=== PATIENT | female | born 1945 | race Caucasian/White ===

== ENCOUNTER → 2019-02-03 | Day surgery (SDC) | payer MEDICARE, OTHER ==
--- NOTE | 2019-02-01 13:13 | Diagnostic Imaging Report ---
EXAMINATION: CHEST 2 VIEWS INDICATION: Pre-operative COMPARISON: None FINDINGS: LINES/TUBES:None LUNGS:The lungs are well-inflated. No focal consolidation or pulmonary edema. PLEURA:No pleural effusion or pneumothorax. MEDIASTINUM:The cardiomediastinal silhouette appears normal in size and shape. Atherosclerotic calcifications of the thoracic aorta. BONES/SOFT TISSUES:No acute osseous injury. ABDOMEN:No free air under the diaphragm. IMPRESSION: No focal pneumonia or pulmonary edema. Signed by: Sebastian Cho MD on 02/01/2019 1:10 PM
[~2019-02-03] MED LIST: ACETAMINOPHEN 1000 MG/100 ML 100 ML IV ONE; AMLODIPINE BESY10 MG PO; BUPIVACAINE HCL 0.5% INJ 30 ML VIAL INJ ONE; CEFAZOLIN SOD 1 GM/NS 50ML 100 ML IV ONE; CRESTOR10 MG; DEXAMETHASONE SOD PHOS INJ 4 MG/ML VIAL ONE; FENTANYL CITRATE/PF 100MCG/2 ML INJ ONE; LEVOTHYROXINE112 MCG PO; LIDOCAINE HCL 2% LOCAL INJ 5 ML SDV VIAL INJ ONE; NEOSTIGMINE 1 MG/ML 10ML VIAL ONE; ONDANSETRON HCL INJ 2MG/ML 2ML 2 MG/ML VIAL ONE; OTEZLA1 EAC1; PROPOFOL IV EMULSION 10 MG/ML 20 ML VIAL ONE; SERTRALINE HCL50 MG PO; SEVOFLURANE INHAL SOLN 250 ML PEN BTL ONE
--- OUTSIDE RECORDS SUMMARY | 2019-02-03 09:30 | XMS REPORT ---
[facility] Address Unknown Phone Unavailable Care Team Providers Care Vascular Neurologist Name Role Phone JENNY MARTINE Unavailable Unavailable Problems This patient has no known problems. Allergies, Adverse Reactions, Alerts This patient has no known allergies or adverse reactions. Medications This patient has no known medications. Results Test Description Test Time Test Comments Text Results Atomic Results Result Comments CHEST 2 VIEWS 2019-02-01 13:09:00 [place] [address] Patient Name: STACI KARIMI MR #: [id number] : 1945 Age/Sex: 73/F Req #: [id number] Adm Physician: Ordered by: MARTINE ALVARADO DPM Report #: [id number] Location: OR Room/Bed: Procedure: [id number] DX/CHEST 2 VIEWS Exam Date: Exam Time: REPORT STATUS: Signed EXAMINATION: CHEST 2 VIEWS INDICATION: Pre-operative COMPARISON: None FINDINGS: LINES/TUBES:None LUNGS:The lungs are well- inflated. No focal consolidation or pulmonary edema. PLEURA:No pleural effusion or pneumothorax. MEDIASTINUM:The cardiomediastinal silhouette appears normal in size and shape. Atherosclerotic calcifications of the thoracic aorta. BONES/SOFT TISSUES:No acute osseous injury. ABDOMEN:No free air under the diaphragm. IMPRESSION: No focal pneumonia or pulmonary edema. Signed by: Nickoals Cho MD on 02/01/2019 1:10 PM Dictated By: NICKOLAS CHO MD 131 Transcribed By: PINEDA on 02/01/191309 COPY TO: MARTINE ALVARADO DPM
[2019-02-03 14:35] VITALS: BP 146/66
--- NOTE | 2019-02-04 04:24 | Operative Report ---
DATE OF PROCEDURE: SURGEON: Yfn Ferguson DPM PREOPERATIVE DIAGNOSES: 1. Rigidly contracted hammertoe, 2nd digit, right foot with ulcerative lesion. 2. Tailor's bunion deformity, right foot. 3. Benign neoplasm, plantar aspect of the right foot. ANESTHESIA: General endotracheal. HEMOSTASIS: Right thigh tourniquet at 350 mmHg. TITLE OF PROCEDURE: 1. Arthrodesis 2nd digit, right foot. 2. Tailor's bunionectomy, right foot. 3. Excision of benign neoplasm, plantar aspect of the right foot. PROCEDURE IN DETAIL: The patient was taken to the operating room in a mildly sedated state, placed up on the operating table in supine position. Following induction of general anesthetic, the right lower extremity was elevated to 60 degrees to exsanguinate before inflating the pneumatic thigh tourniquet to 350 mmHg to create good hemostasis. Left lower extremity was placed on the operating table prior to performing the following procedure. Procedure #1: Arthrodesis of the second digit of right foot. A linear longitudinal incision was made over the dorsal aspect of proximal interphalangeal joint of the right foot. Incision was deepened via sharp and blunt dissection on below the dorsal capsular structure. Care was taken to identify and retract all vital structures encountered. The head of the proximal phalanx was delivered in the surgical site and remodeled utilizing a cup and cone reamer. It was noted that there was an old implant in placed in the interphalangeal joint. This was an [employer] silicone implant. It was easily removed both from distal and proximal aspect. The surrounding tissue appeared fairly healthy, but implant itself had ruptured at the interphalangeal joint level. The cup and cone reamer were used to further facilitate the proper denuding of the bone. A new titanium 2-step implant was placed crossing the interphalangeal joint, this was then compressed under fluoroscopy. The area was irrigated with copious amounts of sterile saline solution. A closure combination of 3-0 Vicryl and 4-0 nylon. The ulcerated area was excised on the medial aspect of the 2nd digit and human tissue allograft was used in a formate to facilitate healing of this wound as well as the other wounds on the foot. This having been accomplished closure complete, both of the previous ulcerated medial aspect of the 2nd digit and the dorsum of the 2nd toe, a digit was directed to the lateral aspect of the interphalangeal joint of the hallux. Incision was deepened and rasped smooth with a bone spur underlying, this was irrigated and closed with 3-0 Vicryl, 4-0 nylon. These were two up-biting lesions taken care relative to the same ulcerated area. The attention was then directed to the tailor's bunion site surgical site remodeled with a rasp and oscillating saw, irrigated with copious amounts of sterile saline solution. At this point, deep closure was 3-0 Vicryl, skin closure of 4-0 nylon. Attention was then directed to the large benign neoplasm on the plantar aspect of the right foot. Two converging semi-elliptical incisions were placed and the lesion was resected from the foot, irrigated and closed with 3-0 Vicryl and 4-0 nylon. The appropriate mildly compressive dressings were applied. A release of the pneumatic thigh tourniquet showed a normal hyperemic flush to all digits of the right foot. The patient left the operating room with vital signs stable in apparent satisfactory condition, having tolerated both anesthetic and procedure very well. DONNA Hansen/BACILIO /[id number]
== END | disposition home or self-care (01) ==
LOC: OR 09:23
PROVIDERS: ATTEND Podiatrist Foot Surgery
DX: M20.41 Other hammer toe(s) (acquired), right foot (principal); M21.611 Bunion of right foot; D48.5 Neoplasm of uncertain behavior of skin; M79.671 Pain in right foot; Z01.810 Encounter for preprocedural cardiovascular examination; Z01.812 Encounter for preprocedural laboratory examination; Z01.811 Encounter for preprocedural respiratory examination; Z88.8 Allergy status to other drugs, medicaments and biological substances; E03.9 Hypothyroidism, unspecified; L40.9 Psoriasis, unspecified; F41.9 Anxiety disorder, unspecified; E78.5 Hyperlipidemia, unspecified; I11.0 Hypertensive heart disease with heart failure; I50.9 Heart failure, unspecified; I73.9 Peripheral vascular disease, unspecified; R05 Cough
CPT/HCPCS: 11422; 28285; 28296; 71046; 76000; 88304; 93005; C1713 ×2; J0131; J0690; J1100; J2001; J2405; J2704; J2710; J3010